=== PATIENT | male | born 1955 | race Hispanic/Latino ===

== ENCOUNTER 2021-01-13 06:39 | Day surgery (SDC) | payer MEDICARE, OTHER, SELFPAY ==
[2021-01-13 07:22] LABS: Basophils % (Auto) 0.5 % (0.0-1.8); Eosinophils # (Auto) 0.2 K/mm3 (0.0-0.4); Eosinophils % (Auto) 2.5 % (0.0-4.3); Hematocrit 42.9 % (35.5-45.6); Lymphocytes # (Auto) 1.6 K/mm3 (1.2-5.4); Lymphocytes % (Auto) 20.4 % (13.4-35.0); Mean Corpuscular HGB Conc 35 % (32-34); Mean Corpuscular Volume 88 fl (84-94); Monocytes # (Auto) 0.7 K/mm3 (0.0-0.8); Monocytes % (Auto) 9.3 % (0.0-7.3); Platelet Count 205 K/mm3 (140-440); Red Blood Count 4.89 M/mm3 (3.65-5.03); Red Cell Distribution Width 13.6 % (13.2-15.2)
[2021-01-13 07:33] LABS: INR 0.9 (0.87-1.13)
[2021-01-13 07:34] LABS: Partial Thromboplastin Time 26.5 Sec. (24.2-36.6)
[2021-01-13] MEDS: SODIUM CHLORIDE 0.9% 500 ML 500 ML IV SCH ×2 (07:43→09:04)
[2021-01-13 08:04] LABS: BUN/Creatinine Ratio 23; Blood Urea Nitrogen 18 mg/dL (9-20); Calcium 9.4 mg/dL (8.4-10.2); Hemolysis Index 1
[2021-01-13] MEDS ORDERED: fentaNYL 100 MCG/2 ML INJ ONE (08:12)
[2021-01-13] MEDS ORDERED: LIDOCAINE (2%) 20 MG/1 ML VIAL 20 ML MDV INFILTRATI ONE (08:13)
[2021-01-13] MEDS: MIDAZOLAM 2 MG/2 ML INJ ONE ×2 (09:04→09:10)
[2021-01-13] MEDS: HEPARIN/NS 5000 UNIT/500ML 1,000 ML IR ONE ×2 (09:05→09:07)
[2021-01-13] MEDS: NITROGLYCERIN SYRINGE 3 ML ONE ×3 (09:06→09:12)
[2021-01-13] MEDS: VERAPAMIL 5 MG/2 ML INJ ONE ×3 (09:10→09:13)
[2021-01-13] MEDS: HEPARIN 10,000 UNITS/10 ML VIAL ONE ×2 (09:10→09:12)
--- NOTE | 2021-01-13 09:49 | Short Stay Summary ---
Short Stay Documentation Date of service: 01/13/21 - History H&P: obtained from office - Allergies and Medications Current Medications: Allergies fentanyl Allergy (Verified 01/13/21 07:09) Shortness of Breath tamsulosin [From Flomax] Allergy (Verified 01/13/21 07:10) Swelling Home Medications Medication Instructions Recorded Confirmed Last Taken Type Aspirin [Aspirin BABY CHEW TAB] 1 tab PO DAILY 06/10/14 01/13/21 01/13/21 07:15 History 81 mg Atorvastatin [Lipitor] 80 mg PO DAILY 06/10/14 01/13/21 01/12/21 History 80 mg Clopidogrel Bisulfate [Plavix] 1 tab PO DAILY 06/10/14 01/13/21 01/13/21 07:17 History 75 mg [place]-3 Fatty Acids/Fish Oil [Fish 1 cap PO DAILY 06/10/14 01/13/21 01/12/21 History Oil] 1 cap Vitamin B Complex [Super B-50 1 cap PO DAILY 06/10/14 01/13/21 01/12/21 History Complex] 1 tab Vitamin E 1 cap PO DAILY 06/10/14 01/13/21 01/12/21 History 1 tab carvediloL [Coreg] 1 tab PO BID 06/10/14 01/13/21 01/13/21 05:45 History 6.25mg lisinopriL [Lisinopril] 20 mg PO DAILY 06/10/14 01/13/21 01/13/21 05:45 History Duloxetine HCl [Drizalma Sprinkle] 30 mg PO DAILY 01/13/21 01/13/21 01/12/21 History 30 mg Dutasteride [Avodart] 0.5 mg PO DAILY 01/13/21 01/13/21 01/12/21 History 0.5mg ISOSORBIDE MONOnitrate [Imdur ER] 60 mg PO DAILY 01/13/21 01/13/21 01/13/21 05:45 History Active Medications Aspirin (Aspirin 81 Mg Tab Chew) 81 mg PO QDAY [facility] Last Admin: 01/13/21 07:43 Dose: 81 mg Documented by: Clopidogrel Bisulfate (Clopidogrel 75 Mg Tab) 75 mg PO QDAY [facility] Last Admin: 01/13/21 07:44 Dose: 75 mg Documented by: Sodium Chloride (Nacl 0.9% 500 Ml) 500 mls @ 50 mls/hr IV DIRECT IGGY Stop: 01/13/21 16:59 Last Admin: 01/13/21 09:04 Dose: 50 mls/hr Documented by: - Brief post op/procedure progress note Date of procedure: 01/13/21 Pre-op diagnosis: sob Post-op diagnosis: same Procedure: see report Anesthesia: regional Estimated blood loss: minimal Pathology: none - Disposition Condition at discharge: Good Disposition: DC-01 TO HOME OR SELFCARE - Discharge Diagnoses (1) Coronary arteriosclerosis in patient with history of previous myocardial infarction Status: Chronic (2) Diabetes mellitus type 2, uncontrolled, without complications Status: Chronic (3) Essential hypertension, benign Status: Chronic (4) GERD (gastroesophageal reflux disease) Status: Chronic (5) Mixed hyperlipidemia Status: Chronic (6) Morbid obesity Status: Chronic Short Stay Discharge Plan Activity: advance as tolerated Diet: low cholesterol, low salt, diabetic Special Instructions: hold Metformin (for two days) Follow up with: PRIMARY CARE, [Primary Care Provider] - 7 Days
[2021-01-13] MEDS ORDERED: ASPIRIN 81 MG TAB CHEW PO SCH (10:00)
[2021-01-13] MEDS ORDERED: CLOPIDOGREL 75 MG TAB PO SCH (10:00)
--- NOTE | 2021-01-13 10:06 | Electrocardiograph Report ---
[facility] Test Date: 2021-01-13 Test Time: 07:52:22 Pat Name: LUISA KEEN Department: Room: Gender: M Sports Journalist: VIJAY : 1955 Requested By: TR BRITTON Order Number: [id number] Reading MD: Tr Britotn Measurements Intervals [place] Rate: 70 P: 68 DC: 182 QRS: 35 QRSD: 110 T: 74 QT: 384 QTc: 414 Interpretive Statements Sinus rhythm No previous ECG available for comparison Electronically Signed On 01-13-2021 10:05:48 EDT by Tr Britton
[2021-01-13] MEDS ORDERED: traMADol 50 MG TAB PO PRN (10:30)
[2021-01-13] MEDS ORDERED: HYDROcodone/ACETAMINOPHEN 5-325 MG TAB PO PRN (10:30)
--- NOTE | 2021-01-13 12:02 | Cardiac Catherization Report ---
DATE OF SERVICE: 01/13/2021 LEFT HEART CATHETERIZATION WITH BYPASS GRAFTS CLINICAL INFORMATION: This is a 65-year-old male with bilateral carotid stenosis, known coronary artery disease with bypass. GUZMAN to LAD was atretic. SVG diagonal, SVG to OM done in 2012. The patient had PCI in 2018 with laser for in-stent restenosis with drug-eluting stents. The patient has persistent shortness of breath and occasional chest pain despite intermediate risk stress test. He is here for a left heart catheterization. He has a history of hypertension, diabetes, cholesterol, morbid obesity. Procedure was done under moderate sedation. Started at 9:11, finished at 9:40, which is 29 minutes of moderate sedation. DESCRIPTION OF PROCEDURE: Procedure was done via the left radial artery, sterile technique, local anesthesia, 6-Bulgarian radial sheath inserted. Left system was engaged with a JL3.5 catheter. Left main is a medium caliber vessel and is patent. LAD is a medium caliber vessel, has a mid 30-40%, diagonal was 100%. SVG to diagonal was engaged with JR4 catheter, is a large caliber graft, free of disease from the ostium, body, and anastomosis site feeding into a small caliber diagonal 1 with multiple branches. Circumflex, mid 100%. SVG to OM engage ar mod catheter, so a large caliber graft, free of disease from the ostium, body, anastomosis site with retrograde and antegrade filling into a small to medium caliber OM system. RCA was engaged with JR4 catheter, is a large caliber vessel that is patent. Mid to distal stent is widely patent. PDA and PLV are small to medium caliber and patent. LV gram done in CROATIAN and SARKAR view shows normal LV function, LVEDP of 15 mmHg. LV is 130. Aortic is 130/70 mmHg. GUZMAN was engaged. It is atretic, nonfunctional. Catheters exchangeded over guidewire. A 6-Bulgarian radial sheath was discontinued. Radial band applied. No hematoma. No bleeding. SUMMARY: Left main, patent; LAD mid 40%; diagonal 1 100% with patent SVG to diagonal. Circumflex mid 100% with patent SVG to OM. RCA mid and distal stent is widely patent with normal LV function, nonfunctional GUZMAN. PLAN: The patient will continue to treat medically. Discussed with the patient and the patient's family in detail. TID: [id number] RECEIPT: [id number] RENE/RAJ/RAULITO MTDD
[2021-01-13 14:40] VITALS: BP 141/91
== END 2021-01-13 15:19 | disposition home or self-care (01) ==
LOC: CATHLABREC 06:39
PROVIDERS: ATTEND Internal Medicine
DX: I25.10 Atherosclerotic heart disease of native coronary artery without angina pectoris (principal); K21.9 Gastro-esophageal reflux disease without esophagitis; I10 Essential (primary) hypertension; E11.65 Type 2 diabetes mellitus with hyperglycemia; E78.2 Mixed hyperlipidemia; E66.01 Morbid (severe) obesity due to excess calories; G47.30 Sleep apnea, unspecified; M19.90 Unspecified osteoarthritis, unspecified site; F32.9 Major depressive disorder, single episode, unspecified; I25.2 Old myocardial infarction; F41.9 Anxiety disorder, unspecified; Z98.890 Other specified postprocedural states; Z88.8 Allergy status to other drugs, medicaments and biological substances; Z79.899 Other long term (current) drug therapy; Z79.82 Long term (current) use of aspirin; Z87.891 Personal history of nicotine dependence; Z68.43 Body mass index [BMI] 50.0-59.9, adult; Z95.1 Presence of aortocoronary bypass graft; Z82.49 Family history of ischemic heart disease and other diseases of the circulatory system
CPT/HCPCS: 36415; 80048; 85025; 85610; 85730; 93005; 93459; 99156; 99157; C1894; J1644; J2250; J7040; J3010; Q9967